=== PATIENT | male | born 1990 | race Caucasian/White ===

== ENCOUNTER 2019-09-01 23:39 | Emergency (ER) | payer OTHER ==
[~2019-09-01] VITALS: Ht 175.3 cm; Wt 73.9 kg
[2019-09-01] MEDS ORDERED: Keflex500 MG PO (23:59)
== END 2019-09-02 00:15 | disposition home or self-care (01) ==
LOC: ER 23:39
DX: S80.12XA Contusion of left lower leg, initial encounter (principal); L03.116 Cellulitis of left lower limb; W18.39XA Other fall on same level, initial encounter
CPT/HCPCS: 99283; A9270-GY

== ENCOUNTER 2019-10-02 12:17 | Emergency (ER) | payer OTHER ==
[~2019-10-02] VITALS: Ht 175.3 cm; Wt 73.9 kg
[~2019-10-02 12:17] MED LIST: Keflex500 MG PO
== END 2019-10-02 14:59 | disposition home or self-care (01) ==
LOC: ER 12:17
DX: K62.89 Other specified diseases of anus and rectum (principal)
CPT/HCPCS: 99282

== ENCOUNTER 2019-10-26 08:57 | Day surgery (SDC) | payer OTHER ==
[~2019-10-26] VITALS: Ht 177 cm; Wt 76.5 kg
--- NOTE | 2019-10-26 10:31 | NUR ---
"DAY SURGERY RN | REPORT TO HASMUKH TERRY."
--- NOTE | 2019-10-26 14:04 | NUR ---
Patient up to [facility] independently. Gait steady. Discharged via wheelchair to private car for ride home. Discharge instructions reviewed with patient. Patient verbalizes understanding. Copy given to patient to take home.
--- NOTE | 2019-10-29 12:47 | NUR ---
10/29/19 1247 Antonette Casillas VERIFICATIONS, AUDITS.
== END 2019-10-26 23:31 | disposition home or self-care (01) ==
LOC: ORSCMMR 08:57 → ORD 10:30 → ORSCMMR 23:31
PROVIDERS: Surgery
PROC: 0DBQXZZ Excision of Anus, External Approach (ICD-10-PCS; principal; 2019-10-26 10:30)
DX: K64.4 Residual hemorrhoidal skin tags (principal)
CPT/HCPCS: 88305; J1100; J1885; J2250; J2405; J2704; J3010; J7120

== ENCOUNTER 2022-04-11 15:52 | Emergency (ER) | payer OTHER ==
[~2022-04-11] VITALS: Ht 172.7 cm; Wt 70.8 kg
[2022-04-11 16:53] LABS: BASOPHILS ABSOLUTE AUTO 0.03 K/mm3 (0.00-0.23); BASOPHILS PERCENT AUTO 0 % (0-2); EOSINOPHILS ABSOLUTE AUTO 0.05 K/mm3 (0.00-0.68); EOSINOPHILS PERCENT AUTO 1 % (0-6); Hematocrit 42.9 % (37.0-53.0); Hemoglobin 14.9 g/dL (13.5-17.5); IMMATURE GRAN ABSOLUTE AUTO 0.05 K/mm3 (0.00-0.10); IMMATURE GRAN PERCENT AUTO 1 % (0-1); LYMPHOCYTES ABSOLUTE AUTO 1.52 K/mm3 (0.84-5.20); LYMPHOCYTES PERCENT AUTO 22 % (21-46); MONOCYTES ABSOLUTE AUTO 0.51 K/mm3 (0.16-1.47); MONOCYTES PERCENT AUTO 8 % (4-13); Mean Corpuscular HGB 29.9 pg (26.0-34.0); Mean Corpuscular HGB Conc 34.7 g/dL (31.5-36.5); Mean Corpuscular Volume 86 fL (80-100); Mean Platelet Volume 10.4 fL (9.1-12.4); NEUTROPHILS ABSOLUTE AUTO 4.63 K/mm3 (1.96-9.15); NEUTROPHILS PERCENT AUTO 68 % (41-73); Platelet Count 292 K/mm3 (150-400); RDW Coefficient Variation 12.3 % (11.7-14.2); RDW Standard Deviation 38.9 fL (35.1-46.3); Red Blood Cell Count 4.99 M/mm3 (4.30-5.90); White Blood Cell Count 6.79 K/mm3 (4.00-11.30)
[2022-04-11 17:17] LABS: Albumin, Blood 4.1 g/dL (3.4-5.0); Albumin/Globulin Ratio 1.2 (0.8-1.8); Bilirubin, Total 0.3 mg/dL (0.1-1.0); Bun/Creatinine Ratio 14.4 (12.0-20.0); Calcium, Blood 8.9 mg/dL (8.5-10.1); Creatinine, Blood 0.91 mg/dL (0.60-1.20); Globulin, Blood 3.4 g/dL (2.2-4.0); Potassium, Blood 3.8 mmol/L (3.5-5.5); Total Protein, Blood 7.5 g/dL (6.4-8.2)
== END 2022-04-11 21:23 | disposition home or self-care (01) ==
LOC: ER 15:52
PROVIDERS: Student in an Organized Health Care Education/Training Program
DX: S06.0X0A Concussion without loss of consciousness, initial encounter (principal); W19.XXXA Unspecified fall, initial encounter; R55 Syncope and collapse
CPT/HCPCS: 36415; 70450; 80053; 85025; 93005; 93010; 99284-25; J7030